=== PATIENT | male | born 1960 | race African-American/Black ===

== ENCOUNTER 2021-03-31 10:50 | Inpatient (IN) | payer OTHER, MEDICAID ==
[~2021-03-31] VITALS: Ht 182.9 cm; Wt 93.0 kg
[~2021-03-31 10:50] MED LIST: HYDR25TA MT; LISI40TA13 MT; METF-414 MT
[2021-03-31] MEDS ORDERED: KETOROLAC 30MG/ML VIAL IV STA (11:22)
[2021-03-31] MEDS ORDERED: ACETAMINOPHEN 325MG TABLET PO STA (11:22)
[2021-03-31] MEDS ORDERED: SODIUM CHLORIDE 0.9% 1,000 ML IV ONE (11:30)
[2021-03-31 11:50] LABS: BASOPHILS % 0.1 % (0.0-2.0); EOSINOPHILS % 0.1 % (0.0-5.0); HEMOGLOBIN. 12.3 g/dL (14.0-18.0); LYMPHOCYTES % 22.3 % (20.0-50.0); MEAN CORPUSCULAR HEMOGLOBIN 30.1 pg (28.0-32.0); MEAN CORPUSCULAR VOLUME 87.9 fL (80.0-94.0); MEAN PLATELET VOLUME 10.1 fl (7.4-10.4); MONOCYTES % 10.6 % (2.0-8.0); NEUTROPHILS % 66.9 % (40.0-76.0); PLATELET 190 x1000/uL (130-400); RED BLOOD CELL COUNT 4.09 mill/uL (4.7-6.1); RED CELL DISTRIBUTION WIDTH 14.4 % (11.6-14.6)
[2021-03-31 11:54] LABS: CHLORIDE 102 mEq/L (98-107)
[2021-03-31 12:33] LABS: BG BASE EXCESS -2.5 mmol/L (-2.0-2.0); BG CARBOXYHEMOGLOBIN 0.9 % (0.5-1.5); BG DEOXYHEMOGLOBIN 6.6 % (0.0-5.0); BG FRACTION INSPIRED OXYGEN 21; BG HCO3 ACT 20.6 mmol/L (22.0-26.0); BG METHEMOGLOBIN 0.3 % (0.0-1.5); BG OXYGEN SATURATION 93.3 % (92.0-98.5); BG OXYHEMOGLOBIN 92.2 % (94.0-97.0); BG PCO2 30.6 mmHg (35.0-45.0); BG PH 7.446 (7.350-7.450); BG PO2 67.1 mmHg (75.0-100.0); BG SAMPLE SITE RIGHT RADIAL; BG TOTAL HEMOGLOBIN 12.8 g/dL (12.0-18.0); BG VENT MODE ROOM AIR
[2021-03-31 13:47] LABS: HEPATITIS B SURFACE ANTIGEN NEGATIVE
[2021-03-31 16:00] VITALS: BP 128/76
[2021-03-31] MEDS ORDERED: MORPHINE SULFATE 2 MG/ML CPJ (NOT FOR IM USE) IV PRN (16:30)
[2021-03-31] MEDS ORDERED: CLONIDINE 0.1MG TABLET PO PRN (16:30)
[2021-03-31] MEDS ORDERED: IPRATROPIUM/ALBUTEROL 0.5-3(2.5)MG/3ML NEB HHN PRN (16:30)
[2021-03-31] MEDS ORDERED: ONDANSETRON HCL 4MG/2ML INJ IV PRN (16:30)
[2021-03-31] MEDS ORDERED: ACETAMINOPHEN 325MG TABLET PO PRN (16:30)
[2021-03-31] MEDS ORDERED: DIPHENHYDRAMINE 50MG/ML VIAL IV PRN (16:30)
[2021-03-31] MEDS ORDERED: NALOXONE HCL 0.4MG/ML VIAL IV PRN (16:45)
[2021-03-31 18:00] VITALS: BP 128/76
[2021-03-31] MEDS ORDERED: AMLO5TAB4 PO (20:28)
[2021-04-01] MEDS: SODIUM CHLORIDE 0.9% 1,000 ML IV SCH ×3 (02:30→21:25)
[2021-04-01 08:00] VITALS: BP 122/74
[2021-04-01 08:26] LABS: BASOPHILS % 0.1 % (0.0-2.0); HEMATOCRIT. 30.9 % (42.0-52.0); HEMOGLOBIN. 10.5 g/dL (14.0-18.0); LYMPHOCYTES % 20.3 % (20.0-50.0); MEAN CORPUSCULAR HEMOGLOBIN 30.3 pg (28.0-32.0); MEAN CORPUSCULAR VOLUME 89.3 fL (80.0-94.0); MEAN PLATELET VOLUME 10.2 fl (7.4-10.4); MONOCYTES % 10.8 % (2.0-8.0); NEUTROPHILS % 68.8 % (40.0-76.0); PLATELET 190 x1000/uL (130-400); RED BLOOD CELL COUNT 3.46 mill/uL (4.7-6.1); RED CELL DISTRIBUTION WIDTH 14.4 % (11.6-14.6)
[2021-04-01 08:42] LABS: CHLORIDE 102 mEq/L (98-107)
[2021-04-01] MEDS ORDERED: BENZONATATE 100MG CAPSULE PO PRN (11:45)
[2021-04-01] MEDS ORDERED: PHENOL/SODIUM PHENOLATE 1.4% SRPAY 177ML MM PRN (11:45)
[2021-04-01 12:00] VITALS: BP 129/58
[2021-04-01 13:43] LABS: TOTAL IRON BINDING CAPACITY 119 ug/dL (250-450)
[2021-04-01 13:44] LABS: AMYLASE 176 IU/L (25-115)
[2021-04-01] MEDS: LORATADINE 10MG TABLET PO SCH (13:54)
[2021-04-01] MEDS: GUAIFENESIN 600MG ER TABLET PO SCH ×2 (13:54→21:24)
[2021-04-01] MEDS: FLUTICASONE PROPIONATE 50MCG/SPRAY BOTTLE BOTHNSTRLS SCH ×2 (14:07→21:32)
[2021-04-01] MEDS ORDERED: CEFTRIAXONE 1 G PREMIX 50 ML IV SCH (14:15)
[2021-04-01 14:26] LABS: FOLIC ACID (FOLATE) SERUM 9.7 ng/mL (>5.38)
[2021-04-01] MEDS ORDERED: CEFTRIAXONE 1,000 MG in DEXTROSE 5% WATER 50 ML IV SCH (15:30)
[2021-04-01 16:31] LABS: CLARITY URINE CLEAR (CLEAR); COLOR URINE YELLOW (YELLOW); KETONES URINE NEGATIVE (NEGATIVE); LEUKOCYTE ESTERASE URINE NEGATIVE (NEGATIVE); NITRITE URINE NEGATIVE (NEGATIVE); OCCULT BLOOD URINE 1+ (NEGATIVE); PROTEIN URINE 1+ (NEGATIVE); SPECIFIC GRAVITY URINE 1.015 (1.005-1.030)
[2021-04-01 17:31] VITALS: BP 125/84
[2021-04-01] MEDS: AZITHROMYCIN 500 MG TABLET PO SCH (17:58)
[2021-04-01 20:00] VITALS: BP 117/81
[2021-04-02 00:15] VITALS: BP 120/66
[2021-04-02 07:17] LABS: BASOPHILS % 0.1 % (0.0-2.0); EOSINOPHILS % 0.3 % (0.0-5.0); HEMATOCRIT. 31.9 % (42.0-52.0); HEMOGLOBIN. 10.9 g/dL (14.0-18.0); LYMPHOCYTES % 18.2 % (20.0-50.0); MEAN CORPUSCULAR HEMOGLOBIN 30.5 pg (28.0-32.0); MEAN CORPUSCULAR VOLUME 89.4 fL (80.0-94.0); MEAN PLATELET VOLUME 9.9 fl (7.4-10.4); MONOCYTES % 8.7 % (2.0-8.0); NEUTROPHILS % 72.7 % (40.0-76.0); PLATELET 250 x1000/uL (130-400); RED BLOOD CELL COUNT 3.57 mill/uL (4.7-6.1); RED CELL DISTRIBUTION WIDTH 14.3 % (11.6-14.6)
[2021-04-02 08:00] VITALS: BP 123/78
[2021-04-02] MEDS: GUAIFENESIN 600MG ER TABLET PO SCH (08:12)
[2021-04-02] MEDS: FLUTICASONE PROPIONATE 50MCG/SPRAY BOTTLE BOTHNSTRLS SCH (08:12)
[2021-04-02] MEDS: LORATADINE 10MG TABLET PO SCH (08:12)
[2021-04-02] MEDS: AZITHROMYCIN 500 MG TABLET PO SCH (08:12)
[2021-04-02] MEDS: SODIUM CHLORIDE 0.9% 1,000 ML IV SCH (08:14)
[2021-04-02 09:02] LABS: CREATINE KINASE 775 IU/L (39-308)
[2021-04-02] MEDS ORDERED: BENZ100C86 PO (11:29)
[2021-04-02] MEDS ORDERED: TOPUD PO (11:29)
[2021-04-02] MEDS ORDERED: PHEN177S75 MM (11:29)
[2021-04-02] MEDS ORDERED: LEVO750T46 MT (11:29)
[2021-04-02] MEDS ORDERED: GUAI600T44 PO (11:29)
[2021-04-02 12:00] VITALS: BP 138/94
[2021-04-02 15:01] VITALS: BP 123/64
[2021-04-05 13:07] LABS: *HIV-1 RNA BY PCR <20 copies/mL (.)
== END 2021-04-02 16:00 | disposition home or self-care (01) | DRG 871 ==
LOC: ER 10:50 → 6EST 15:14 → EDBEDREQ 15:22 → ENRESERV 15:26 → 7WST 04-01 17:04
PROVIDERS: ADMIT Internal Medicine; ATTEND Internal Medicine
DX: A41.9 Sepsis, unspecified organism (principal); U07.1 COVID-19; K85.90 Acute pancreatitis without necrosis or infection, unspecified; M62.82 Rhabdomyolysis; N17.9 Acute kidney failure, unspecified; D64.9 Anemia, unspecified; D72.821 Monocytosis (symptomatic); J04.0 Acute laryngitis; E11.22 Type 2 diabetes mellitus with diabetic chronic kidney disease; Z60.2 Problems related to living alone; E88.09 Other disorders of plasma-protein metabolism, not elsewhere classified; R16.0 Hepatomegaly, not elsewhere classified; J02.9 Acute pharyngitis, unspecified; I12.9 Hypertensive chronic kidney disease with stage 1 through stage 4 chronic kidney disease, or unspecified chronic kidney disease; K76.0 Fatty (change of) liver, not elsewhere classified; N18.30 Chronic kidney disease, stage 3 unspecified; Z79.84 Long term (current) use of oral hypoglycemic drugs; Z79.899 Other long term (current) drug therapy; Z87.891 Personal history of nicotine dependence; Z86.19 Personal history of other infectious and parasitic diseases
CPT/HCPCS: 36415; 36600; 71045; 74176; 80048; 80053; 80076; 81003; 82150; 82248; 82375; 82550; 82607; 82728; 82746; 82805; 82962; 83036; 83540; 83550; 83615; 83880; 84145; 84443; 84484; 85025; 86140; 86705; 86709; 86803; 87340; 87426; 87536; 87804; 93005; 93970; 94640; 99285; C1893; J0696; J1885; J7030; J7060; U0003; U0005